=== PATIENT | female | born 1975 | race Two or more races ===

== ENCOUNTER 2025-03-29 09:00 | Inpatient (IN) | payer OTHER ==
[~2025-03-29] VITALS: Ht 165.1 cm; Wt 65.3 kg
[2025-03-29] MEDS ORDERED: RESTORIL30 M1 PO (12:55)
[2025-03-29 12:56] LABS: URINE APPEARANCE Clear; URINE BILIRRUBIN Negative (NEGATIVE); URINE BLOOD Trace; URINE COLOR Yellow; URINE GLUCOSE Negative (NEGATIVE); URINE KETONE Negative (NEGATIVE); URINE LEUKOCYTE Negative; URINE NITRATE Negative; URINE PROTEIN Negative (NEGATIVE); URINE UROBILINOGEN 0.2 E.U./dl
[2025-03-29] MEDS ORDERED: WELLBUTRIN XL300 MG PO (12:56)
[2025-03-29] MEDS ORDERED: CLONAZEPAM0.5 MG PO (12:56)
[2025-03-29] MEDS ORDERED: PROTONIX20 MG PO (12:57)
[2025-03-29] MEDS ORDERED: PEPCID AC10 MG PO (12:57)
[2025-03-29] MEDS ORDERED: SYNTHROID112 MCG PO (12:57)
[2025-03-29] MEDS ORDERED: ZANAFLEX4 M1 PO (12:57)
[2025-03-29 12:59] VITALS: BP 111/66
[2025-03-29 12:59] LABS: URINE BACTERIA 65.9 uL (0.0-1933); URINE EPITHELIAL CELLS 1.9 uL (0.0-38.8); URINE RBC 2.3 uL (0.0-20.8)
[2025-03-29] MEDS ORDERED: NATESTO7.32 GM (12:59)
[2025-03-29 13:01] LABS: URINE CAST 0.00 uL (0.0-1.40); URINE WBC 1.2 uL (0.0-23.2)
[2025-03-29 13:06] LABS: BASO % 0.7 % (0.1-1.2); EOS # 0.13 (0.04-0.54); EOS % 2.8 % (0.7-7.0); LYMPH # 1.33 (1.18-3.74); LYMPH % 29.0 % (19.3-53.1); MEAN PLATELET VOLUME 10.30 fl (9.4-12.4); MONO # 0.46 (0.24-0.82); MONO % 10.0 % (4.7-12.5); NEUT # 2.62 (1.56-6.13); NEUT % 57.3 % (34.0-71.1); RED CELL DISTRIBUTION WIDTH 13.2 % (11.6-14.4)
[2025-03-29 13:27] LABS: INR 0.98
[2025-03-29 13:31] LABS: CHOL HDL RATIO 1.9 (0-5.0); HDL 79.0 mg/dl (40-60); LDL 63.0 mg/dl (0-130); VLDL 9.0 (0-39)
[2025-03-29 13:32] LABS: ALT/SGPT 23.0 U/L (12-78); AST/SGOT 26.0 U/L (15-37); BILIRUBIN TOTAL 0.35 mg/dL (0.3-1.2); BUN CREA RATIO 20.0 (7.0-25.0); CREATININE SERUM 0.79 mg/dL (0.55-1.02); GFR 77.68; GLOBULINA 3.6 G/DL (2.4-3.5); GLUCOSE FASTING 92.0 mg/dL (65-100); OSMOLALITY SERUM 286.0 MOSM/KG (275-295)
[2025-04-06] MEDS ORDERED: VANCOMYCIN HCL 1,000 MG VIAL ONE (13:25)
[2025-04-06] MEDS ORDERED: OxyCODONE HCL 5 MG TABLET (ROXICODONE) PO PRN (16:45)
[2025-04-06] MEDS ORDERED: ONDANSETRON HCL 2 MG/ML VIAL IV PRN (16:45)
[2025-04-06] MEDS ORDERED: SODIUM CHLORIDE 0.45 % 1,000 ML IV SCH (16:45)
[2025-04-06] MEDS ORDERED: MORPHINE SULFATE 4 MG/ML CARTRIDGE IV PRN (16:45)
[2025-04-06] MEDS ORDERED: GABAPENTIN 300 MG CAPSULE PO SCH (17:00)
[2025-04-06] MEDS ORDERED: ACETAMINOPHEN 500 MG GEL..CAP PO SCH (18:00)
[2025-04-06] MEDS ORDERED: VANCOMYCIN HCL 1,000 MG in 0.9 % SODIUM CHLORIDE 250 ML IV SCH (21:00)
[2025-04-06 21:48] VITALS: BP 104/74; O2SAT 97
[2025-04-07 01:22] VITALS: BP 109/66; O2SAT 97
[2025-04-07 07:49] LABS: BASO % 0.1 % (0.1-1.2); EOS # 0.04 (0.04-0.54); EOS % 0.5 % (0.7-7.0); LYMPH # 1.01 (1.18-3.74); LYMPH % 13.3 % (19.3-53.1); MEAN PLATELET VOLUME 10.30 fl (9.4-12.4); MONO # 0.73 (0.24-0.82); MONO % 9.6 % (4.7-12.5); NEUT # 5.79 (1.56-6.13); NEUT % 76.1 % (34.0-71.1); RED CELL DISTRIBUTION WIDTH 12.5 % (11.6-14.4)
[2025-04-07 08:00] VITALS: BP 115/80; O2SAT 96
[2025-04-07] MEDS ORDERED: PERCOCET 5-3251 EACH PO (08:39)
[2025-04-07] MEDS ORDERED: ELIQUIS2.5 MG PO (08:39)
[2025-04-07] MEDS ORDERED: SENNOSIDES 1 TAB TABLET PO SCH (09:00)
[2025-04-07] MEDS ORDERED: APIXABAN 2.5 MG TABLET PO SCH (09:00)
[2025-04-07] MEDS ORDERED: VANCOMYCIN HCL 1,000 MG VIAL ONE (10:56)
[2025-04-07] MEDS ORDERED: VANCOMYCIN HCL 1,000 MG VIAL IV NR (11:00)
[2025-04-07 16:00] VITALS: BP 108/71; O2SAT 98
[2025-04-07] MEDS ORDERED: VANCOMYCIN HCL 1,000 MG VIAL IV SCH (21:00)
[2025-04-08] MEDS ORDERED: IRON FUM,PS/FOLIC ACID/VITC/B3 1 CAP CAPSULE PO SCH (09:00)
== END 2025-04-07 17:18 | disposition home or self-care (01) | DRG 482 ==
LOC: SURH 04-06 09:00 → O/R 04-06 13:00 → SURH 04-06 15:25
PROVIDERS: ADMIT Orthopaedic Surgery; ATTEND Orthopaedic Surgery
PROC: 0QU70JZ Supplement Left Upper Femur with Synthetic Substitute, Open Approach (ICD-10-PCS; 2025-04-06)
PROC: 0SCB0ZZ Extirpation of Matter from Left Hip Joint, Open Approach (ICD-10-PCS; principal; 2025-04-06 12:00)
DX: M87.852 Other osteonecrosis, left femur (principal); G35.D Multiple sclerosis, unspecified; E07.9 Disorder of thyroid, unspecified; J45.909 Unspecified asthma, uncomplicated